=== PATIENT | female | born 1955 | race Caucasian/White ===

== ENCOUNTER 2024-08-27 04:39 | Day surgery (SDC) | payer OTHER, BC ==
[2024-08-26 11:00] VITALS: BMI 38.2
[2024-08-27 09:25] VITALS: TEMP 98.6
[2024-08-27 09:50] VITALS: BP 107/60; PULSE 65; RESP 15
== END 2024-08-27 09:57 | disposition home or self-care (01) ==
LOC: JASU-ENDO 04:39
PROVIDERS: ATTEND Internal Medicine Gastroenterology
PROC: 0DBP8ZX Excision of Rectum, Via Natural or Artificial Opening Endoscopic, Diagnostic (ICD-10-PCS; principal; 2024-08-27 09:00)
DX: Z12.11 Encounter for screening for malignant neoplasm of colon (principal); K63.5 Polyp of colon; Z98.0 Intestinal bypass and anastomosis status; K64.8 Other hemorrhoids
CPT/HCPCS: 88305-TC

== ENCOUNTER 2024-11-12 06:53 | Day surgery (SDC) | payer OTHER, BC ==
[2024-11-12] MEDS ORDERED: PROMETHAZINE HCL 25 MG/1 ML VIAL IVPB PRN (11:11)
[2024-11-12] MEDS ORDERED: oxyCODONE HCL 5 MG TABLET PO PRN ×2 (11:11)
[2024-11-12] MEDS ORDERED: ONDANSETRON 4 MG/2 ML VIAL IVPUSH PRN (11:11)
[2024-11-12] MEDS ORDERED: BUPIVACAINE HCL/PF 0.25% (2.5MG/ML) 10 ML VIAL ONE (11:18)
[2024-11-12] MEDS ORDERED: MIDAZOLAM HCL 2 MG/2 ML SINGLE DOSE VIAL ONE (11:46)
[2024-11-12] MEDS ORDERED: PROPOFOL 40 ML ONE (11:46)
[2024-11-12] MEDS ORDERED: ROCURONIUM BROMIDE 50 MG/5 ML SYRINGE ONE ×3 (11:47→17:39)
[2024-11-12] MEDS ORDERED: ACETAMINOPHEN INJECTION 100 ML ONE (11:47)
[2024-11-12] MEDS ORDERED: SUGAMMADEX SODIUM 200 MG/2 ML VIAL ONE ×2 (11:47→17:40)
[2024-11-12] MEDS ORDERED: SEVOFLURANE 250 ML BTL ONE (11:47)
[2024-11-12] MEDS ORDERED: ceFAZolin SODIUM 1 GM VIAL ONE (11:47)
[2024-11-12] MEDS ORDERED: DEXAMETHASONE SOD PHOSPHATE 4 MG/1 ML VIAL ONE (11:47)
[2024-11-12] MEDS ORDERED: ONDANSETRON 4 MG/2 ML VIAL ONE (11:47)
[2024-11-12] MEDS ORDERED: LIDOCAINE HCL 2% 100 MG/5 ML DISP.SYRIN ONE (11:54)
[2024-11-12] MEDS: ceFAZolin SODIUM 1 GM VIAL IVPB ONE ×2 (12:40)
[2024-11-12] MEDS: BUPIVACAINE HCL/PF 0.25% (2.5MG/ML) 10 ML VIAL IJ ONE ×2 (13:16)
[2024-11-12] MEDS ORDERED: HYDROmorphone HCl 2 MG/ML VIAL ONE (14:06)
[2024-11-12] MEDS ORDERED: hydrALAZINE HCL 20 MG/ML VIAL ONE (15:38)
[2024-11-12] MEDS ORDERED: TRANEXAMIC ACID 1000 MG/10 ML VIAL ONE (18:12)
[2024-11-12] MEDS: ACETAMINOPHEN 500 MG TABLET (FP) PO SCH (21:33)
[2024-11-12] MEDS: LACTATED RINGERS SOLUTION 1,000 ML IV SCH (21:34)
[2024-11-12] MEDS ORDERED: morphine CARPU-JECT 2 MG/1 ML DISP.SYRIN IVPUSH PRN (21:34)
[2024-11-12] MEDS: hydrALAZINE HCL 20 MG/ML VIAL IVPUSH ONE (22:41)
[2024-11-12] MEDS: HEPARIN NA (PORCINE) 5,000 UNITS/ML 1ML VIAL SQ SCH (22:42)
[2024-11-12 23:33] VITALS: BMI 41.4
[2024-11-12] MEDS: DEXTROSE 5%-NORMAL SALINE 1,000 ML IV SCH (23:41)
[2024-11-13 09:14] LABS: ABSOLUTE IMMATURE GRANULOCYTES 0.04 x10^3/uL (0.0-0.031); BASOPHILS # 0.03 x10^3/uL (0.01-0.08); HEMATOCRIT 39.6 % (34.1-44.9); HEMOGLOBIN 12.2 g/dL (11.2-15.7); MCHC 30.8 g/dl (32.2-35.5); MEAN CELL VOLUME 86.7 fl (79.4-94.8); MEAN PLT VOLUME 10.2 fl (9.4-12.3); MONOCYTE # 1.21 x10^3/uL (0.24-0.86); MONOCYTE % 9.4 % (4.7-12.5); PLATELET COUNT 227 x10^3/uL (182-369); RDW 13.3 % (12.4-16.4)
[2024-11-13 10:20] LABS: BLOOD UREA NITROGEN 14.3 mg/dL (7-18)
[2024-11-13 10:21] LABS: CALCIUM 8.4 mg/dL (8.5-10.1)
[2024-11-13 10:25] LABS: CREATININE 0.9 mg/dL (0.55-1.3)
[2024-11-13 10:26] LABS: BILIRUBIN,TOTAL 0.5 mg/dL (0.2-1); TOT PROT 6.2 g/dl (6.4-8.2)
[2024-11-13 10:32] LABS: ALBUMIN 3.1 g/dl (3.4-5.0)
[2024-11-13 14:51] VITALS: BP 131/54; PULSE 78; RESP 20; TEMP 98.4
== END 2024-11-13 15:21 | disposition home or self-care (01) ==
LOC: SUATTDRO 06:53 → JASU-SURG 06:53 → JERBED 21:30 → UNDOADMIN 21:30 → J8W 11-13 00:59 → JERBED 11-13 00:59 → J8W 11-13 11:05 → JASUSAT 11-13 15:21
PROVIDERS: ATTEND Nurse Practitioner Family
PROC: 0WUF4JZ Supplement Abdominal Wall with Synthetic Substitute, Percutaneous Endoscopic Approach (ICD-10-PCS; 2024-11-12)
PROC: 8E0W4CZ Robotic Assisted Procedure of Trunk Region, Percutaneous Endoscopic Approach (ICD-10-PCS; 2024-11-12)
PROC: 0DNW4ZZ Release Peritoneum, Percutaneous Endoscopic Approach (ICD-10-PCS; 2024-11-12)
PROC: 0DNW4ZZ Release Peritoneum, Percutaneous Endoscopic Approach (ICD-10-PCS; 2024-11-12)
PROC: 0WUF4JZ Supplement Abdominal Wall with Synthetic Substitute, Percutaneous Endoscopic Approach (ICD-10-PCS; principal; 2024-11-12 11:00)
DX: K43.9 Ventral hernia without obstruction or gangrene (principal)
CPT/HCPCS: 49329; 49595; S2900; 36415; 80048; 80053; 85025; 86140; 86850; 86900; 86901; 94760; 97116-GP; C1781; J0131; J1644